=== PATIENT | female | born 1995 | race Two or more races ===

== ENCOUNTER 2020-01-30 23:56 | Emergency (ER) | payer OTHER ==
[2020-01-31] MEDS ORDERED: NS 0.9% 1000 ML** 1,000 ML IV ONE (00:01)
--- NOTE | 2020-01-31 00:02 | ED ---
Influenza-Like Illness - HPI Summary HPI Summary: Patient with history of flu symptoms 1 week with Covid test pending complains of new onset umbilical abdominal pain starting last night with associated diarrhea and urinary frequency. Abdominal pain described as constant with spikes of severe pain, currently 7/10. Denies pain with urination, fever, N/V, vaginal symptoms. Denies prior history of same abdominal pain. Medical history is none. Abdominal surgical history is none. Patient states flu symptoms are improving. - History of Current Complaint Time Seen by Provider: 01/30/20 23:58 Hx Obtained From: Patient Onset/Duration: Sudden Onset, Lasting Hours Severity: Severe Associated Signs & Symptoms: Diarrhea - Allergy/Home Medications Allergies/Adverse Reactions: Allergies Allergy/AdvReac Type Severity Reaction Status Date / Time No Known Allergies Allergy Verified 01/31/20 00:14 Home Medications: Home Medications NK [No Home Medications Reported] 01/31/20 [History Confirmed 01/31/20] PMH/Surg Hx/FS Hx/Imm Hx Endocrine/Hematology History: Denies: Hx Anticoagulant Therapy Cardiovascular History: Denies: Hx Pacemaker/ICD Respiratory History: Denies: Hx Chronic Obstructive Pulmonary Disease (COPD) History: Denies: Hx Dialysis Sensory History: Denies: Hx Eye Prosthesis Opthamlomology History: Denies: Hx Legally Blind EENT History: Denies: Hx Deafness Neurological History: Denies: Hx Dementia - Family History Known Family History: Positive: Non-Contributory - Social History Alcohol Use: Occasionally Hx Substance Use: No Hx Tobacco Use: No Review of Systems Constitutional: Negative Eyes: Negative ENT: Negative Cardiovascular: Negative Respiratory: Negative Positive: Abdominal Pain, Diarrhea Genitourinary: Negative Musculoskeletal: Negative Skin: Negative Neurological/Mental Status: Negative Psychological: Normal All Other Systems Reviewed And Are Negative: Yes Physical Exam Triage Information Reviewed: Yes Vital Signs Reviewed: Yes Appearance: Positive: Well-Appearing Skin: Positive: Warm Head/Face: Positive: Normal Head/Face Inspection Eyes: Positive: Normal Neck: Positive: Supple Respiratory/Lung Sounds: Positive: Clear to Auscultation Cardiovascular: Positive: Normal Abdomen Description: Positive: Other: - Mildly tender diffusely with moderate tenderness at umbilicus. Musculoskeletal: Positive: Normal Neurological: Positive: Normal Psychiatric: Positive: Normal AVPU Assessment: Alert - Valier Coma Scale Best Eye Response: 4 - Spontaneous Best Motor Response: 6 - Obeys Commands Best Verbal Response: 5 - Oriented Coma Scale Total: 15 Procedures - Sedation Patient Received Moderate/Deep Sedation with Procedure: No Diagnostics - Laboratory Result Diagrams: 01/31/20 00:05 01/31/20 00:05 Lab Statement: Any lab studies that have been ordered have been reviewed, and results considered in the medical decision making process. Flu Symptom Course/Dx - Course Course Of Treatment: Patient with history of flu symptoms 1 week with Covid test pending complains of new onset umbilical abdominal pain starting last night with associated diarrhea and urinary frequency. Abdominal pain described as constant with spikes of severe pain, currently 7/10. Denies pain with urination, fever, N/V, vaginal symptoms. Denies prior history of same abdominal pain. Medical history is none. Abdominal surgical history is none. Patient states flu symptoms are improving. Vital signs within normal limits. Labs unremarkable. Discussed benefits versus risk of using CT scan to rule out appendicitis. Patient prefers to defer CT at this time in favor of watchful waiting. - Diagnoses Provider Diagnoses: Abdominal pain, Diarrhea Discharge ED - Sign-Out/Discharge Documenting (check all that apply): Sign-Out Patient Signing out patient TO: Waldemar Hansen - Discharge Plan Condition: Stable Disposition: HOME Patient Education Materials: Acute Abdominal Pain (ED) Referrals: No Primary Care Phys,NOPCP [Primary Care Provider] - Additional Instructions: Alternate ibuprofen 600 mg with Tylenol 650 mg every 3 hours if needed for pain. Drink plenty of fluids to maintain hydration when having diarrhea. Return to the ED for any new or worsening symptoms. - Billing Disposition and Condition Condition: STABLE Disposition: Home
[2020-01-31] MEDS ORDERED: Ketorolac INJ* 30 MG/ML 1 ML VIAL IV ONE (00:17)
[2020-01-31] MEDS ORDERED: Ketorolac INJ* 15 MG/ML 1 ML VIAL ONE (00:18)
[2020-01-31] MEDS ORDERED: Ketorolac INJ* 15 MG/ML 1 ML VIAL IV PUSH ONE (00:36)
[2020-01-31 00:51] LABS: ABS Eosinophils 0.1 10^3/ul (0-0.6); ABS Lymphocytes 1.6 10^3/ul (1.0-4.8); ABS Monocytes 0.4 10^3/ul (0-0.8); ABS Neutrophils 5.4 10^3/ul (1.5-7.7); Eosinophil % 1.2 %; Hematocrit 35 % (35-47); Mean Corpuscular HGB Conc 34 g/dL (31-36); Mean Corpuscular Hemoglobin 33 pg (27-31); Mean Corpuscular Volume 97 fL (80-97); Mean Platelet Volume 9.4 fL (7.4-10.4); Platelet Count 204 10^3/uL (150-450); Red Blood Count 3.67 10^6 /uL (3.70-4.87); Red Cell Distribution Width 13 % (10-15); White Blood Count 7.5 10^3/uL (3.5-10.8)
[2020-01-31 01:19] LABS: Albumin 4.1 g/dL (3.2-5.2); Anion Gap 6 mmol/L (2-11); CO2 Carbon Dioxide 25 mmol/L (22-32); Calcium 9.4 mg/dL (8.6-10.3); Chloride 105 mmol/L (101-111); Potassium 3.8 mmol/L (3.5-5.0); Sodium 136 mmol/L (135-145)
[2020-01-31 01:25] LABS: ALT 10 U/L (7-52); AST 17 U/L (13-39); Albumin/Globulin Ratio 1.6 (1-3); Alkaline Phosphatase 36 U/L (34-104); BUN/Creatinine Ratio 14.5 (8-20); Blood Urea Nitrogen 11 mg/dL (6-24); C Reactive Protein 11.21 mg/L (<8.01); EGFR African American 115.1 (>60); EGFR Non-African American 95.2 (>60); Globulin 2.6 g/dL (2-4); Glucose 104 mg/dL (70-100); Total Protein 6.7 g/dL (6.4-8.9)
[2020-01-31 02:15] LABS: Urine Appearance Clear; Urine Bilirubin Negative (Negative); Urine Blood 2+ (Negative); Urine Color Straw; Urine Glucose Negative (Negative); Urine Ketones Negative (Negative); Urine Nitrite Negative (Negative); Urine Protein Negative (Negative); Urine Specific Gravity 1.005 (1.010-1.030); Urine Urobilinogen Negative (Negative)
[2020-01-31 02:54] LABS: HCG Pregnancy < 0.60 mIU/mL
[2020-01-31 03:37] LABS: Urine Bacteria 1+ (Absent); Urine Red Blood Cell Trace(0-2/hpf) (Absent); Urine Squamous Epithelial Cell Present (Absent); Urine White Blood Cell 2+(11-20/hpf) (Absent)
== END 2020-01-31 02:21 | disposition home or self-care (01) ==
LOC: ED 23:56
DX: R10.9 Unspecified abdominal pain (principal); R19.7 Diarrhea, unspecified; R35.0 Frequency of micturition
CPT/HCPCS: 36415; 80053; 81003; 81015; 83605; 83690; 84702; 85025; 86140; 87086; 96374; 99282; J1885